=== PATIENT | female | born 1970 | race Caucasian/White ===

== ENCOUNTER 2023-11-27 18:52 | Emergency (ER) | payer BC, SELFPAY ==
[2023-11-27 19:02] VITALS: BP 112/53; PULSE 95; RESP 18; TEMP 36.9; O2SAT 100; BMI 24.3
--- NOTE | 2023-11-27 19:07 | EKG_ITS ---
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
[2023-11-27 19:39] LABS: Add Manual Diff / Slide Review NO; Basophils Absolute Auto 0 /uL (0-100); Basophils Percent Auto 0.5 % (0-2); Eosinophils Absolute Auto 100 /uL (0-450); Eosinophils Percent Auto 1.1 % (2-4); Hematocrit 40.5 % (36-46); Lymphocytes Absolute Auto 1500 /uL (1100-4500); Lymphocytes Percent Auto 16.1 % (25-40); Mean Corpuscular HGB Conc 34.5 % (30-36); Monocytes Absolute Auto 1000 /uL (0-900); Monocytes Percent Auto 10.9 % (3-14); Neutrophils Absolute Auto 6800 /uL (1500-7000); Neutrophils Percent Auto 71.4 % (50-75); Platelet Count 199 X10^3/uL (150-400); Red Blood Cell Count 4.65 X10^6/uL (4.0-5.2); Red Cell Distribution Width 13.3 % (11.6-14.8); White Blood Cell Count 9.5 X10^3/uL (4.5-11.0)
[2023-11-27 19:53] LABS: Bacteria Urine None Seen; Culture Indicated Urine Cult Not Indicated; RBC Urine 0-1/HPF (0-5/HPF); Squamous Epithelial Cell Urine 0-1 /HPF (0-5/HPF); Urine Volume 10mL (spun); WBC Urine None Seen (0-5/HPF)
[2023-11-27 19:59] LABS: Alanine Aminotransferase 12 IU/L (<35); Albumin 4.4 g/dL (3.5-5.0); Albumin Globulin Ratio 1.3 (1.0-2.8); Alkaline Phosphatase 65 U/L (38-126); Aspartate Aminotransferase 16 IU/L (14-36); BUN Creatinine Ratio 10.1 (6-22); Bilirubin Total 0.9 mg/dL (0.2-1.3); Blood Urea Nitrogen 8 mg/dL (7-17); Calcium 9.5 mg/dL (8.4-10.2); Carbon Dioxide 30 mmol/L (22-32); Chloride 103 mmol/L (98-107); Estimated Glomerular Filt Rate > 60 mL/min (>60); Globulin 3.4 g/dL (1.7-4.1); Glucose 97 mg/dL (70-100); HEMOLYSIS < 15 (0-50); Lipase 36 U/L (23-300); Potassium 3.4 mmol/L (3.4-5.1); Sodium 136 mmol/L (137-145); Total Protein 7.8 g/dL (6.3-8.2)
[2023-11-27 21:26] VITALS: BP 129/89; PULSE 82; RESP 16; O2SAT 98
--- NOTE | 2023-11-27 22:02 | ED_ITS ---
HPI - Abdominal Pain General Chief Complaint: Abdominal Pain Stated Complaint: Abd Pain Time Seen by Provider: 11/27/23 21:20 Source: patient Mode of arrival: Ambulatory History of Present Illness HPI narrative: Patient is a 52-year-old female without significant past medical history presenting today with 3 days of lower abdominal pain. She has had decrease in appetite some mild nausea no vomiting. She reports fever 101 at home. Not having any sort of bowel movement. But quite tender across her lower abdomen. No painful frequent urination. Reports that she had a ruptured appendix about 4 years ago. She is passing gas. Related Data Home Medications Medication Instructions Recorded Confirmed estradiol 0.025 mg/24 hr topical 2XW Menopause symptoms 11/27/23 11/27/23 semiweekly transdermal patch progesterone micronized 100 mg mg PO DAILY Menopause symptoms 11/27/23 11/27/23 capsule Previous Rx's Medication Instructions Recorded ciprofloxacin HCl 500 mg tablet 500 mg PO BID #20 tabs 11/28/23 (Cipro) hydrocodone 5 mg-acetaminophen 325 1 tab PO Q6H PRN pain #10 tabs 11/28/23 mg tablet metronidazole 500 mg tablet 500 mg PO Q8H 10 days #30 tabs 11/28/23 Allergies Allergy/AdvReac Type Severity Reaction Status Date / Time trimethobenzamide Allergy Mild Vomiting Verified 11/27/23 14:14 [From [facility]] Patient History Medical History (Updated 11/28/23 @ 00:15 by Argenis Chaudhary DO) History of diverticulitis Surgical History (Updated 11/27/23 @ 14:38 by Jasmin Penn MD) S/P rotator cuff repair Parotid tumor S/P lumbar spinal fusion S/P appendectomy Social History Smoking Status: Unknown if ever smoked additional social history: visiting [place] just drove up from [place], [place] dad lived on [place] until he 3 yrs ago no tobacco occas etoh 11/2023 Smoking Status: Unknown if ever smoked alcohol intake frequency: a few times a week Substance Use Type: does not use Exam Initial Vital Signs Initial Vital Signs: Vital Signs Temperature 98.5 F 11/27/23 19:02 Pulse Rate 95 H 11/27/23 19:02 Respiratory Rate 18 11/27/23 19:02 Blood Pressure 112/53 L 11/27/23 19:02 Pulse Oximetry 100 11/27/23 19:02 Oxygen Delivery Method Room Air 11/27/23 19:02 GENERAL: Alert pleasant 52-year-old female appears uncomfortable and in no acute distress. HEENT: Head atraumatic,EOMI, pupils reactive, face symmetric, moist mucous membranes CARDIOVASCULAR: Regular rate and rhythm without murmurs, rubs or gallops. RESPIRATORY: Breath sounds equal bilaterally, no wheezes rales or rhonchi. ABDOMEN: Soft, lower abdominal tenderness all across no localization no distention normal bowel sounds no guarding or rebound no upper abdominal pain EXTREMITIES: Normal range of motion, no clubbing or edema. Neurovascularly intact NEUROLOGICAL: Alert and oriented x4.Normal gait and speech. SKIN: Warm, dry, no laceration, no petechiae, no rashes or lesions. Course Orders Ordered: ED Orders 11/27/23 22:02 CT abdomen pelvis w con Stat Discontinued Medications Hydrocodone Bitart/Acetaminophen (Hydrocodone/Acet 5/325 Prepack) 1 bottle MISC DIRECTED ONE Stop: 11/28/23 00:09 Last Admin: 11/28/23 00:16 Dose: 1 bottle Documented By: Ciprofloxacin (Ciprofloxacin 250 Mg Tablet) 500 mg PO NOW ONE Stop: 11/27/23 23:55 Last Admin: 11/28/23 00:15 Dose: 500 mg Documented By: Ketorolac Tromethamine (Ketorolac 30 Mg/Ml Vial) 15 mg IV NOW ONE Stop: 11/27/23 22:03 Last Admin: 11/27/23 22:19 Dose: 15 mg Documented By: Metronidazole (Metronidazole 500 Mg Tablet) 500 mg PO NOW ONE Stop: 11/27/23 23:55 Last Admin: 11/28/23 00:15 Dose: 500 mg Documented By: Ondansetron HCl (Ondansetron 4 Mg/2 Ml Inj) 4 mg IV NOW PRN PRN Reason: Nausea And Vomiting Ondansetron HCl (Ondansetron 4 Mg Odt) 4 mg PO NOW PRN PRN Reason: Nausea And Vomiting Vital Signs Vital signs: Vital Signs - 8 hr 11/28/23 00:34 Temperature 98.4 F Pulse Rate 87 Respiratory Rate 18 Blood Pressure 105/54 L Pulse Oximetry 95 Oxygen Delivery Method Room Air MDM - Abdominal Pain Lab Data 11/27/23 19:26 11/27/23 19:26 Labs: Lab Results 11/27/23 11/27/23 Range/Units 19:13 19:26 WBC 9.5 (4.5-11.0) X10^3/uL RBC 4.65 (4.0-5.2) X10^6/uL Hgb 14.0 (12.0-16.0) g/dL Hct 40.5 (36-46) % MCV 87.0 (80-100) fL MCH 30.0 (26-34) PG MCHC 34.5 (30-36) % RDW 13.3 (11.6-14.8) % Plt Count 199 (150-400) X10^3/uL Neut % (Auto) 71.4 (50-75) % Lymph % (Auto) 16.1 L (25-40) % [place] % (Auto) 10.9 (3-14) % Eos % (Auto) 1.1 L (2-4) % Baso % (Auto) 0.5 (0-2) % Neut # (Auto) 6800 (5454-5301) /uL Lymph # (Auto) 1500 (3391-8698) /uL [place] # (Auto) 1000 H (0-900) /uL Eos # (Auto) 100 (0-450) /uL Baso # (Auto) 0 (0-100) /uL Sodium 136 L (137-145) mmol/L Potassium 3.4 (3.4-5.1) mmol/L Chloride 103 (98-107) mmol/L Carbon Dioxide 30 (22-32) mmol/L BUN 8 (7-17) mg/dL Creatinine 0.79 (0.52-1.04) mg/dL Estimated GFR > 60 (>60) mL/min BUN/Creatinine Ratio 10.1 (6-22) Glucose 97 (70-100) mg/dL Calcium 9.5 (8.4-10.2) mg/dL Total Bilirubin 0.9 (0.2-1.3) mg/dL AST 16 (14-36) IU/L ALT 12 (<35) IU/L Alkaline Phosphatase 65 (38-126) U/L Total Protein 7.8 (6.3-8.2) g/dL Albumin 4.4 (3.5-5.0) g/dL Globulin 3.4 (1.7-4.1) g/dL Albumin/Globulin Ratio 1.3 (1.0-2.8) Lipase 36 (23-300) U/L Urine RBC 0-1/hpf (0-5/HPF) Urine WBC None seen (0-5/HPF) Ur Squamous Epith Cells 0-1 /hpf (0-5/HPF) Urine Bacteria None seen (None) Ur Culture Indicated? Cult not indicated Vol Urine Centrifuged 10ml (spun) Point of care testing: Point of Care Testing Test Results Negative Urine Dip Bedside Urine Glucose Negative Bedside Urine Bilirubin - Negative Bedside Urine Ketone - Negative Urine Specific Flom 1.010 Bedside Urine Occult Blood +/- Bedside Urine pH 6.0 Bedside Urine Protein - Negative Bedside Urine Urobilinogen - Negative Bedside Urine Nitrite - Negative Bedside Urine Leukocytes - Negative Esterase Imaging Data CT scan - abdomen/pelvis: Radiologist's Impression: PROCEDURE: CT ABDOMEN PELVIS W CON INDICATIONS: lower ab pain with fever TECHNIQUE: After the administration of intravenous contrast, axial sections acquired from the lung bases to the pubic symphysis. Coronal and sagittal reformats were performed. For radiation dose reduction, the following was used: automated exposure control, adjustment of mA and/or kV according to patient size. COMPARISON: None. FINDINGS: Image quality: Diagnostic Lower chest: Basal atelectasis. Mildly patulous distal esophagus. Normal heart size Liver: Right lobe subcentimeter lesion is too small to characterize. Gallbladder and biliary system: Unremarkable gallbladder. CBD measures 7-8 mm. 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 No solid renal mass otherwise. No hydronephrosis Vessels and lymph nodes: The main portal vein is patent. No abdominal aortic aneurysm or pathologic lymph nodes by size criteria Bowel and peritoneum: No evidence of small bowel obstruction. Colonic diverticula. Moderate to severe wall thickening and inflammatory changes of the sigmoid colon, with possible minimal narrowing. There is a small amount pelvic free fluid, without a drainable abscess. Body wall: Unremarkable Pelvis: Bladder is unremarkable. Reproductive organs not well evaluated on this study, overall unremarkable Bones: Degenerative changes. L1 corpectomy and thoracolumbar fusion hardware. IMPRESSION: Moderate to severe inflammatory changes of the sigmoid colon with luminal narrowing. Colonic diverticula are present. Findings likely represent diverticulitis and possible superimposed colitis. Colonoscopy correlation is suggested following treatment to assess for any underlying mass. No small bowel obstruction. Small amount pelvic free fluid, without drainable abscess. CBD measures 7-8 mm, borderline dilated, correlate with LFTs. Other findings as above. Dictated by: Estrada Mendez M.D. on 11/27/2023 at 22:33 Approved by: Estrada Mendez M.D. on 11/27/2023 at 22:38 ECG Data Attestation: I personally reviewed and interpreted this ECG as follows: Prior ECG tracings: not available for review Interpretation: Normal sinus rhythm rate 79 ME interval 158 QRS [address] changes no ischemia no priors to compare MDM Narrative Medical decision making narrative: Patient is a 52-year-old female presenting today with ongoing lower abdominal pain fever. She is quite tender on exam, no distention. Blood work does show leukocytosis of 9.5 hemoglobin 14 hematocrit 40.5 platelets 199, sodium 136 potassium 3.4 chloride 103 carbon dioxide 30 BUN 8 creatinine 0.7 bilirubin 0.9 AST 16 ALT 12 lipase 36 Imaging has been reviewed showing colitis narrowing and diverticulitis EKG reviewed no acute ischemia Patient is given Toradol here in the ED. pain has improved she does not to well with narcotics but would like something stronger case he needs it. We will go ahead and start her on antibiotics Cipro and Flagyl for diverticulitis. She has a colonoscopy scheduled for January which seems reasonable. Discussed with her and her reasons to return to the ED. Discharge Plan Departure Patient Disposition: Home Clinical Impression: Diverticulitis Instructions: Clear Liquid Diet, DI for Diverticulitis Activity Restrictions/Additional Instructions: *You have been diagnosed with diverticulitis and colitis *What to do: Increase fluids as tolerated increase diet as tolerated as well. Antibiotics should start working in about 2-3 days. I do recommend that you get a colonoscopy you are scheduled in January which should be fine *Continue to take medications as directed Cipro 500 mg twice a day for 10 days Flagyl 500 mg 3 times a day for 10 days [place] half tablet to 1 full tablet every 6 hours needed for severe pain Motrin 600 mg every 6 hours needed for dipe-ee-[place] pain *Follow up with your primary care provider in 2-3 days or call [phone] *Return to ER if you should have increasing pain bloody stool persistent vomiting, ongoing fever or any new, worsening or concerning symptoms CONTROLLED SUBSTANCE DISCHARGE (Narcotoic/benzodiazepine/Flexeril/Phenergan) 1. You have been prescribed narcotic medications, it does have acetaminophen/Tylenol/paracetamol in it, DO NOT TAKE MORE THAN 4,00mg in 24 hours of Tylenol. TRAMADOL DOES NOT CONTAIN TYLENOL 2. Please understand that we cannot provide further refills of narcotics, benzodiazepines or controlled substances through the ED and her pain management will need to be through your provider. 3. While on these medications you cannot drive or operate heavy machinery. 4. You cannot sign legal documents or perform any duties such as this. 5. As long as you're taking opiate pain medications he should also be taking a stool softener such as Colace, Dulcolax, MiraLAX or prune juice, to help avoid constipation. Prescriptions: New hydrocodone-acetaminophen 5-325 mg tablet 1 tab PO Q6H PRN (Reason: pain) Qty: 10 0RF metronidazole 500 mg tablet 500 mg PO Q8H 10 Days Qty: 30 0RF ciprofloxacin HCl [Cipro] 500 mg tablet 500 mg PO BID Qty: 20 0RF No Action progesterone micronized 100 mg capsule PO DAILY estradiol 0.025 mg/24 hr patch semiweekly topical 2XW Referrals: Jasmin Penn MD [Primary Care Provider] - Stand Alone Forms: Patient Portal/API
[2023-11-27] MEDS: KETOROLAC 30 MG/ML VIAL 15 MG IV (22:19)
[2023-11-28] MEDS: metroNIDAZOLE 500 MG TABLET PO (00:15)
[2023-11-28] MEDS: CIPROFLOXACIN 250 MG TABLET 500 MG PO (00:15)
[2023-11-28] MEDS: HYDROCODONE/ACET 5/325 PREPACK 1 BOTTLE MISC (00:16)
[2023-11-28 00:34] VITALS: BP 105/54; PULSE 87; RESP 18; TEMP 36.9; O2SAT 95
== END 2023-11-28 00:35 | disposition home or self-care (01) ==
PROVIDERS: Emergency Provider Emergency Medicine; PCP Family Medicine
DX: K57.92 Diverticulitis of intestine, part unspecified, without perforation or abscess without bleeding (principal)
CPT/HCPCS: 36415; 74177; 80053; 81003; 81015; 81025; 83690; 85025; 93005; 96374; 99284; J1885; Q9967